=== PATIENT | female | born 1955 | race Caucasian/White ===

== ENCOUNTER 2016-09-11 13:04 | Emergency (ER) | payer MEDICAID ==
[2016-09-11 13:14] VITALS: BMI 24.1
[2016-09-11 13:25] VITALS: RESP 18; TEMP 98.7; O2SAT 97
[2016-09-11] MEDS ORDERED: Sodium Chloride 0.9% 1,000 ML IV STA (14:17)
[2016-09-11] MEDS ORDERED: guaiFENesin-Codeine 100-10mg/5ml Syrup (5 ml) UD PO STA (14:18)
[2016-09-11] MEDS ORDERED: Levalbuterol 1.25 MG/3 ML Inhal Soln UD IH STA (14:18)
[2016-09-11 14:42] LABS: ADD MANUAL DIFF? NO
[2016-09-11 14:53] LABS: BASO # 0.04 K/mm3 (0.0-2.0); EOS # 0.3 (0.0-0.7); EOS % 7.2 % (1.5-5.0); GRAN # 1.38 (1.4-6.5); GRAN % 34.4 % (50.0-68.0); HEMATOCRIT 34.8 % (36.0-48.0); LYMPH # 1.9 (1.2-3.4); LYMPH % 46.5 % (22.0-35.0); MEAN CELL VOLUME 81.3 fL (80.0-105.0); MEAN CORPUSCULAR HEMOGLOBIN 28.3 pg (25.0-35.0); MEAN CORPUSCULAR HGB CONC 34.8 g/dl (31.0-37.0); MEAN PLATELET VOLUME 10.4 fl (7.0-11.0); MONO # 0.4 (0.1-0.6); MONO % 10.9 % (1.0-6.0); PLATELET COUNT 166 10^3/uL (120.0-450.0); RED CELL DISTRIBUTION WIDTH 13.2 % (11.5-14.5)
[2016-09-11 14:55] LABS: ALB/GLOB RATIO 1.1 (1.1-1.8); ALKALINE PHOSPHATASE 72 U/L (38-133); ALT/SGPT 18 U/L (7-56); AST/SGOT 30 U/L (15-39); BILIRUBIN,TOTAL 0.4 mg/dL (0.2-1.3); BLOOD UREA NITROGEN 14 mg/dL (7-21); CALCIUM 9.7 mg/dL (8.4-10.5); CARBON DIOXIDE 29 mmol/L (21-33); CHLORIDE 102 mmol/L (98-107); GFR AFRICAN-AMERICAN > 60; GLUCOSE,RANDOM 112 mg/dL (70-110); MAGNESIUM 1.7 mg/dL (1.7-2.2); POTASSIUM 4.5 mmol/L (3.6-5.0); SODIUM 140 mmol/L (132-148); TOTAL PROTEIN 8.3 g/dL (5.8-8.3)
[2016-09-11 14:56] LABS: PARTIAL THROMBOPLASTIN TIME 33.7 Seconds (23.7-30.8)
[2016-09-11 15:09] LABS: TROPONIN I < 0.01 ng/mL
[2016-09-11 16:16] VITALS: BP 112/64; PULSE 79
--- NOTE | 2016-09-11 16:32 | ED PDOC ---
Arrival/HPI - General Chief Complaint: Cough, Cold, Congestion Time Seen by Provider: 09/11/16 13:55 Historian: Patient - History of Present Illness Narrative History of Present Illness (Text): 09/11/16 16:28 61 y.o. female whose PMHx includes DM who comes to the ED with complaint of three days of productive cough associated with body aches and says her chest hurts with the cough and breathing but otherwise no chest pain. No abd pain or n/v or LE swelling. Past Medical History - Infectious Disease Hx of Infectious Diseases: None - Tetanus Immunization Tetanus Immunization: Up to Date - Reproductive Menopause: Yes - Cardiac Hx Hyperlipemia: Yes - Endocrine/Metabolic Hx Diabetes Mellitus Type 2: Yes - Psychiatric Hx Depression: No Hx Emotional Abuse: No Hx Physical Abuse: No Hx Substance Use: No - Past Surgical History Past Surgical History: Unable to Obtain - Surgical History Hx Hysterectomy: Yes - Anesthesia Hx Anesthesia: Yes Hx Anesthesia Reactions: No Hx Malignant Hyperthermia: No - Suicidal Assessment Feels Threatened In Home Enviroment: No Family/Social History Family/Social History: No Known Family HX Smoking Status: Never Smoked Hx Alcohol Use: No Hx Substance Use: No Hx Substance Use Treatment: No Allergies/Home Meds Allergies/Adverse Reactions: Allergies No Known Allergies Allergy (Verified 11/27/12 19:09) Home Medications: Home Meds Medication Instructions Recorded Confirmed Metformin Hydrochloride [Metformin] 1,000 mg PO BID 09/30/13 09/11/16 Aspirin [Ecotrin] 81 mg PO DAILY 09/11/16 09/11/16 Insulin Glargine, Recombina 15 units SQ DAILY 09/11/16 09/11/16 [Lantus] Ramipril [Altace] 2.5 mg PO DAILY 09/11/16 09/11/16 Review of Systems - Review of Systems Constitutional: absent: Fevers Eyes: Normal ENT: Normal Respiratory: Cough. absent: SOB Cardiovascular: Other (chest pain only with cough otherwise none) Genitourinary Female: absent: Dysuria Musculoskeletal: Myalgias Skin: Rash Neurological: absent: Dizziness Physical Exam Vital Signs Temp Pulse Resp BP Pulse Ox 09/11/16 16:16 79 18 112/64 97 09/11/16 14:20 86 18 113/65 97 09/11/16 13:04 98.7 F 92 H 18 115/66 97 Temperature: Afebrile Blood Pressure: Normal Pulse: Regular Respiratory Rate: Normal Appearance: Positive for: Well-Appearing, Non-Toxic, Comfortable Pain Distress: None Mental Status: Positive for: Alert and Oriented X 3 - Systems Exam Head: Present: Atraumatic, Normocephalic Pupils: Present: PERRL Conjunctiva: Present: Normal Mouth: Present: Moist Mucous Membranes Pharnyx: Present: Normal. No: ERYTHEMA, EXUDATE Neck: Present: Normal Range of Motion Respiratory/Chest: Present: Clear to Auscultation, Good Air Exchange. No: Respiratory Distress, Accessory Muscle Use Cardiovascular: Present: Regular Rate and Rhythm, Normal S1, S2. No: Murmurs Abdomen: Present: Normal Bowel Sounds. No: Tenderness, Distention, Peritoneal Signs Back: Present: Normal Inspection Upper Extremity: Present: Normal Inspection. No: Cyanosis, Edema Lower Extremity: Present: Normal Inspection. No: Edema Neurological: Present: GCS=15, CN II-XII Intact, Speech Normal Skin: Present: Warm, Dry, Normal Color. No: Rashes Psychiatric: Present: Alert, Oriented x 3, Normal Insight, Normal Concentration Medical Decision Making ED Course and Treatment: 09/11/16 16:30 Patient with noted history with normal vitals and normal ekg. CP is only with cough and movement. Differential: bronchitis vs pneumonia. CXR and ekg and labs are unremarkable. She feels better after meds in the ED - will d/c on zithromax, prednisone, and robitussin ac for bronchitis and have her f.u pmd. - Lab Interpretations Lab Results: 09/11/16 14:25 09/11/16 14:25 Lab Results 09/11/16 14:25: WBC 4.0 L, RBC 4.28, Hgb 12.1, Hct 34.8 L, MCV 81.3, MCH 28.3, MCHC 34.8, RDW 13.2, Plt Count 166, MPV 10.4, Gran % 34.4 L, Lymph % (Auto) 46.5 H, Barron % (Auto) 10.9 H, Eos % (Auto) 7.2 H, Baso % (Auto) 1.0, Gran # 1.38 L, Lymph # 1.9, Barron # 0.4, Eos # 0.3, Baso # 0.04, PT 10.8, INR 1.00, APTT 33.7 H, Sodium 140, Potassium 4.5, Chloride 102, Carbon Dioxide 29, Anion Gap 14, BUN 14, Creatinine 0.7, Est GFR ( Amer) > 60, Est GFR (Non-Af Amer) > 60, Random Glucose 112 H, Calcium 9.7, Magnesium 1.7, Total Bilirubin 0.4, AST 30, ALT 18, Alkaline Phosphatase 72, Lactate Dehydrogenase 573, Total Creatine Kinase 95, Troponin I < 0.01, Total Protein 8.3, Albumin 4.4, Globulin 3.9, Albumin/Globulin Ratio 1.1, Lipase 142 - RAD Interpretation Radiology Orders: 09/11/16 14:07 CHEST TWO VIEWS (PA/LAT) [RAD] Stat - EKG Interpretation EKG Interpretation (Text): 09/11/16 16:32 NSR @ 84; no ST/T changes; normal intervals; normal axis. Interpreted by ED Physician: Yes Type: 12 lead EKG - Medication Orders Current Medication Orders: Discontinued Medications Guaifenesin/Codeine Phosphate (Robitussin W/Codeine) 10 ml PO ONCE STA Stop: 09/11/16 14:19 Last Admin: 09/11/16 16:03 Dose: 10 ML Sodium Chloride (Sodium Chloride 0.9%) 1,000 mls @ 999 mls/hr IV .Q1H1M STA Stop: 09/11/16 15:17 Last Admin: 09/11/16 16:04 Dose: 999 MLS/HR eMAR Start Stop Document 09/11/16 16:04 EQ (Rec: 09/11/16 16:04 EQ [facility] – [id number]) Intravenous Solution Start Date 09/11/16 Start Time 16:04 Ketorolac Tromethamine (Toradol) 30 mg IVP STAT STA Stop: 09/11/16 14:18 Last Admin: 09/11/16 16:04 Dose: 30 MG IVP Administration Document 09/11/16 16:04 EQ (Rec: 09/11/16 16:04 EQ [facility] – [id number]) Charges for Administration # of IVP Administrations 1 Levalbuterol HCl (Xopenex) 1.25 mg IH STAT STA Stop: 09/11/16 14:19 Last Admin: 09/11/16 16:03 Dose: 1.25 MG Methylprednisolone (Solu-Medrol) 125 mg IVP STAT STA Stop: 09/11/16 14:19 Last Admin: 09/11/16 16:03 Dose: 125 MG IVP Administration Document 09/11/16 16:03 EQ (Rec: 09/11/16 16:03 EQ [facility] – [id number]) Charges for Administration # of IVP Administrations 1 Disposition/Present on Arrival - Present on Arrival Any Indicators Present on Arrival: No History of DVT/PE: No History of Uncontrolled Diabetes: No Urinary Catheter: No History of Decub. Ulcer: No History Surgical Site Infection Following: None - Disposition Have Diagnosis and Disposition been Completed?: Yes Diagnosis: Bronchitis Disposition: HOME/ ROUTINE Disposition Time: 16:35 Patient Plan: Discharge Condition: GOOD Discharge Instructions (ExitCare): Acute Bronchitis (ED) Print Language: YI Additional Instructions: Take the medications as prescribed. Follow up with your primary care doctor. Return to the emergency department if any new concerning symptoms. Prescriptions: Guaifenesin/Codeine Phosphate [Guaifenesin-Codeine Syrup] 10 ml PO Q6H PRN #180 ml PRN Reason: Cough Azithromycin [Zithromax] 2 tab PO DAILY #6 tab predniSONE [Prednisone] 2 tab PO DAILY #6 tab
--- NOTE | 2016-09-12 09:07 | RAD ---
HISTORY: cough COMPARISON: 09/01/2014 TECHNIQUE: Chest PA and lateral FINDINGS: LUNGS: No active pulmonary disease. PLEURA: No significant pleural effusion identified. No pneumothorax apparent. CARDIOVASCULAR: Normal. OSSEOUS STRUCTURES: No significant abnormalities. VISUALIZED UPPER ABDOMEN: Normal. OTHER FINDINGS: None. IMPRESSION: No active disease.
--- NOTE | 2016-09-12 12:01 | CARD ---
APPROVED REPORT EKG Measurement Heart [id number] <Conclusion> Normal sinus rhythm Normal ECG
== END 2016-09-11 16:31 | disposition home or self-care (01) ==
LOC: ED 13:04
DX: J40 Bronchitis, not specified as acute or chronic (principal); E78.5 Hyperlipidemia, unspecified; E11.9 Type 2 diabetes mellitus without complications
CPT/HCPCS: 71020; 80053; 82550; 83615; 83690; 83735; 84484; 85025; 85610; 85730; 93005; 96374; 96375; 99283; J1885; J2930; J7040